=== PATIENT | female | born 1965 | race Caucasian/White ===

== ENCOUNTER → 2017-02-27 | Day surgery (SDC) | payer OTHER ==
[~2017-02-27] VITALS: Ht 162.6 cm; Wt 56.7 kg
[~2017-02-27] MED LIST: OSCAL + D500 MG PO
== END ==
LOC: GPOC 02-23 08:00 → GEND 08:23
PROC: 0DBN8ZX Excision of Sigmoid Colon, Via Natural or Artificial Opening Endoscopic, Diagnostic (ICD-10-PCS; principal; 2017-02-27)
DX: Z12.11 Encounter for screening for malignant neoplasm of colon (principal); K63.5 Polyp of colon; N92.6 Irregular menstruation, unspecified; R63.4 Abnormal weight loss; Z98.890 Other specified postprocedural states; Z88.1 Allergy status to other antibiotic agents
CPT/HCPCS: J2001; J7030